=== PATIENT | male | born 1985 | race Caucasian/White ===

== ENCOUNTER 2023-08-08 04:02 | Outpatient (CLI) | payer MEDICAID ==
--- NOTE | 2023-08-08 13:48 | XRAY Report ---
PROCEDURE: Abdomen 1 View X-Ray INDICATIONS: AB PAIN AND HEMATURIA TECHNIQUE: One view of the abdomen acquired. COMPARISON: None. FINDINGS: Surgical changes and devices: None. Bowel: Bowel gas pattern is normal. Soft tissues: Possible right ureter stone. Visualized solid organ contours appear normal in size. Bones: No suspicious bony lesions. IMPRESSION: Possible right ureter stone. Consider CT KUB for further evaluation. Reviewed by: Dre Bautista MD on 08/08/2023 1:47 PM PST Approved by: Dre Bautista MD on 08/08/2023 1:47 PM PST Station ID: [id number]
== END 2023-08-08 04:03 | disposition home or self-care (01) ==
LOC: DI 04:02
PROVIDERS: ATTEND Naturopath
DX: R31.21 Asymptomatic microscopic hematuria (principal); R10.9 Unspecified abdominal pain